=== PATIENT | female | born 1985 | race Two or more races ===

== ENCOUNTER 2018-12-18 07:20 | Emergency (ER) | payer MEDICAID ==
[~2018-12-18] VITALS: Ht 170.2 cm; Wt 95.7 kg
[2018-12-18 07:51] VITALS: BP 119/70
[2018-12-18] MEDS ORDERED: ACETAMINOPHEN 325 MG TAB PO ONE (08:00)
[2018-12-18] MEDS ORDERED: PROMETHAZINE HCL 25 MG/ML 1ML IM ONE (08:00)
[2018-12-18 10:30] LABS: Urine Bacteria FEW /hpf (None Seen); Urine Blood Negative /uL (Negative); Urine Specific Gravity 1.007 (1.001-1.035); Urine WBC <1 /hpf (0 - 5)
== END 2018-12-18 11:38 | disposition home or self-care (01) ==
LOC: EDBD 07:20 → ER 07:20
DX: O26.892 Other specified pregnancy related conditions, second trimester (principal); R07.89 Other chest pain; R06.02 Shortness of breath; Z3A.19 19 weeks gestation of pregnancy; V49.49XA Driver injured in collision with other motor vehicles in traffic accident, initial encounter; Y93.89 Activity, other specified; Y99.8 Other external cause status; Y92.89 Other specified places as the place of occurrence of the external cause
CPT/HCPCS: 36415; 76805; 81001; 84702; 96372; 99284; J2550